=== PATIENT | male | born 1930 | race Caucasian/White ===

== ENCOUNTER → 2018-05-29 | Outpatient (CLI) | payer MEDICARE | END | disposition home or self-care (01) | LOC: PCVCCLINIC 11:00 | PROVIDERS: ATTEND Internal Medicine Cardiovascular Disease | DX: I25.10 Atherosclerotic heart disease of native coronary artery without angina pectoris (principal); R94.31 Abnormal electrocardiogram [ECG] [EKG]; E78.00 Pure hypercholesterolemia, unspecified; E78.5 Hyperlipidemia, unspecified; I10 Essential (primary) hypertension; R09.89 Other specified symptoms and signs involving the circulatory and respiratory systems; Z95.1 Presence of aortocoronary bypass graft; Z79.82 Long term (current) use of aspirin; Z79.899 Other long term (current) drug therapy | CPT/HCPCS: 36415; 80061; 93005; G0463 ==

== ENCOUNTER → 2018-08-25 | Outpatient (CLI) | payer MEDICARE ==
--- NOTE | 2018-08-25 11:00 | PCVCIMAG ---
EXAM: BILATERAL CAROTID DUPLEX INDICATION: Carotid Occlusive Disease. Carotid bruit. FINDINGS: Doppler Measurements (centimeters per second): RIGHT: Peak CCA-99, Peak ECA-79, Diastolic ICA-9, Peak ICA-60, ICA/CCA Ratio-0.6. LEFT: Peak CCA-81, Peak ECA-143, Diastolic ICA-21, Peak ICA-116, ICA/CCA Ratio-1.4. RIGHT CAROTID: The carotid bulb has mild plaque. The proximal internal carotid artery shows <40% stenosis. The common carotid artery shows no significant stenosis. The external carotid artery shows no significant stenosis. LEFT CAROTID: The carotid bulb has moderate plaque. The proximal internal carotid artery shows <40% stenosis. The common carotid artery shows no significant stenosis. The external carotid artery shows no significant stenosis. Antegrade flow in both vertebral arteries. IMPRESSION: <40% stenosis of the right internal carotid artery with mild plaque. <40% stenosis of the left internal carotid artery with moderate plaque. LOC:[place] [id number]
--- NOTE | 2018-08-25 14:47 | PCVCIMAG ---
APPROVED REPORT Study performed: 08/25/2018 11:24:27 Exam: Stress Echocardiogram Indication: CAD s/p CABG Patient Location: Echo lab Stress Nurse: Rebecca Norris RN Status: routine Ht: 5 ft 9 in HR: 80 bpm BP: 122/70 mmHg Rhythm: NSR Medical History Medical History: CAD s/p CABG, Hyperlipidemia, HTN Exercise History: Physically active Procedure The patient underwent an Exercise Stress Test using the Gee Protocol. Blood pressure, heart rate, and EKG were monitored. An Echocardiogram was performed by airframe technician in four stages in quad fashion. At peak stress, four selected images were obtained and placed side by side with resting images for comparison. Stress Test Details Stress Test: Exercise stress testing was performed using a Gee protocol. HR Resting HR: 80 bpmMax Heart Rate (APMHR): 134 bpm Max HR Achieved: 126 bpmTarget HR (85% APMHR): 113 bpm % of APMHR: 94 Recovery HR: 87 bpm HR response to stress: Normal HR response to stress BP Resting BP: 122/70 mmHg Max BP: 162/68 mmHg Recovery BP: 136/78 mmHg BP response to stress: Normal blood pressure response to stress. ECG Resting ECG: Sinus Rhythm Stress ECG: Sinus Rhythm Recovery ECG: Sinus Rhythm Clinical Reason for Termination: Maximal effort Exercise duration: 5 min 41 sec Highest Stage Achieved: Stage 2: 2.5 mph at 12% grade. Exercise capacity: 7.00 METs Pre-Stress Echo The resting Echocardiogram showed normal left ventricular contractility with an estimated Ejection Fraction of about 50%. Inferior wall hypokinesis. Mid distal septum hypokinesis. Post-Stress Echo The stress Echocardiogram showed normal left ventricular contractility with an estimated Ejection Fraction of about 55%. No new wall motion abnormalites. Wall motion corresponds with known anatomy. Conclusion Clinical Response: Non-ischemic Exercise Capacity: Average Stress ECG Response: Non-ischemic Stress Echo Images: Non-ischemic Other Information Study Quality: Technically Difficult
== END | disposition home or self-care (01) ==
LOC: PCVCIMAG 10:05
PROVIDERS: ATTEND Internal Medicine Cardiovascular Disease
DX: I25.10 Atherosclerotic heart disease of native coronary artery without angina pectoris (principal); R09.89 Other specified symptoms and signs involving the circulatory and respiratory systems; I65.23 Occlusion and stenosis of bilateral carotid arteries; I10 Essential (primary) hypertension; E78.5 Hyperlipidemia, unspecified; Z95.1 Presence of aortocoronary bypass graft; Z86.69 Personal history of other diseases of the nervous system and sense organs
CPT/HCPCS: 93325; 93351; 93880